=== PATIENT | female | born 1990 ===

== ENCOUNTER 2024-06-01 13:59 | Emergency (ER) | payer OTHER, SELFPAY ==
--- NOTE | ~2024-06-01 | XR_ITS ---
EXAMINATION: XR CHEST CLINICAL INFORMATION: Cough, hx of liver transplant COMPARISON: None available. TECHNIQUE: 2 views of the chest were obtained. FINDINGS: No significant abnormality is noted involving the heart, lungs, mediastinum, bony thorax or soft tissues. XR/XR chest 2V IMPRESSION: Unremarkable examination.
--- NOTE | ~2024-06-01 | CT_ITS ---
EXAMINATION: CT ABDOMEN AND PELVIS WITH CONTRAST CLINICAL INFORMATION: Large ventral hernia, status post liver transplantation. COMPARISON: CT abdomen and pelvis from 08/03/2022 TECHNIQUE: Multidetector volumetric images were obtained from the superior aspect of the liver through the pubic symphysis following administration 85 mL of Omnipaque 350 intravenous contrast. Sagittal and coronal reformatted images were obtained on the technologist's workstation. Oral contrast: No This CT examination was performed using dose optimization techniques as appropriate, variously including the following: *Automated exposure control *Adjustment of mA and/or kV according to patient size (this includes techniques or standardized protocols for targeted exams where dose is matched to indication/reason for exam; i.e. extremities or head) *Use of iterative reconstruction technique DLP: 944 mGy-cm FINDINGS: LUNG BASES: No pulmonary consolidation or pleural effusion. HEPATOBILIARY: The transplant liver has normal parenchymal attenuation. Gallbladder is surgically absent. No dilated bile ducts. PANCREAS: No edema, pancreatic ductal dilatation or mass. SPLEEN: Normal. ADRENAL GLANDS: Normal. KIDNEYS AND URETERS: Kidneys have normal size and cortical thickness. No perinephric edema, urolithiasis or hydroureteronephrosis. BLADDER: Normal. BOWEL AND PERITONEUM: Stomach and small bowel are unremarkable. No dilated loops. The appendix is normal. No overt colonic wall thickening or mesenteric fat stranding. No free fluid or pneumoperitoneum. ABDOMINAL WALL: The ventral abdominal wall hernias are new since 08/01/2022. There is a bilobed appearance of a fat-containing periumbilical hernia. This fat-containing hernia has a neck that measures approximately 4.5 cm wide and hernia sac is 8 cm transverse, 2.6 cm AP and 5.9 cm craniocaudal. Also, there is a right of midline abdominal wall hernia traveling through the right rectus abdominis muscle that is larger than the fat-containing periumbilical hernia. This more right-sided hernia has a broad neck of at least 10 cm wide and the large hernia sac contains fat, unobstructed small bowel as well as part of the anterior wall of a segment of transverse colon. The hernia sac is approximately 17.6 cm transverse, 7 cm AP and 13 cm craniocaudal. VASCULATURE: Abdominal aorta is normal in caliber and its branches are widely patent. Inferior vena cava is normal. No portal or hepatic venous thrombosis. LYMPH NODES: No pathologic sized lymph nodes in the abdomen or pelvis. No inguinal lymphadenopathy. PELVIC VISCERA: No uterine mass. 3 x 4 x 2.9 cm cyst of the left ovary has a simple appearance. It was 2.8 x 4.7 x 4 cm on 08/03/2022. No imaging follow-up required/recommended for this simple cyst that has decreased in size. No pelvic free fluid. MUSCULOSKELETAL: No acute or suspicious osseous abnormality. Bones appear to be diffusely osteopenic and there is chronic height loss of multiple vertebra. No acute fractures. CT/CT abdomen pelvis w IV con IMPRESSION: * Status post liver transplantation. * Compared to 08/03/2022, interval development of two abutting ventral abdominal wall hernias, as noted above. * Simple cyst of the left ovary has decreased in size compared to 08/03/2022. * Bones appear to be diffusely osteopenic and there is chronic height loss of multiple vertebra. No acute fractures.
[2024-06-01 14:02] VITALS: BP 115/76; PULSE 95; RESP 18; TEMP 36.6; O2SAT 99
--- NOTE | 2024-06-01 14:02 | ED.GENADULT ---
HPI - General Adult General Chief complaint: General Medical Stated complaint: multiple complaints Time Seen by Provider: 06/01/24 15:50 History of Present Illness ED Provider: Wali BAILEY narrative: The patient is a 34-year-old female who has a past medical history of liver failure with a liver transplant at [facility] in [place] a few years ago. The patient has a large ventral hernia related to the liver surgery. She says that a few months ago she was supposed to have surgery to repair the hernia with a mesh but she had some other medical issues at the time and so the surgery was not done. The patient says that over the last week she has had worsening abdominal discomfort together with nausea and vomiting. She has a lot of total body pains. She has not had any fevers. She says that she last had her hernia visualized by an imaging study at [facility] 1 week ago. The patient lives in [place]. We have no recent records on this patient. Related Data Allergies Allergy/AdvReac Type Severity Reaction Status Date / Time aspirin Allergy Anaphylaxis Verified 06/01/24 14:10 ibuprofen [From Motrin] Allergy Anaphylaxis Verified 06/01/24 14:10 Penicillins Allergy Anaphylaxis Verified 06/01/24 14:10 Sulfa (Sulfonamide Allergy Anaphylaxis Verified 06/01/24 14:10 Antibiotics) morphine AdvReac Vomiting Verified 06/01/24 14:10 Review of Systems Review of Systems: Yes all other systems are reviewed and are negative [facility] Social History Social History Advance Directives: No Advance Directives Information Provided: No Do you have a plan to hurt others: No Plan Physical Exam ED Vital Signs: Vital Signs - 24 hr 06/01/24 14:02 06/01/24 18:12 Temperature 97.8 F 97.2 F Pulse Rate 95 83 Respiratory Rate 18 18 Blood Pressure 115/76 120/77 Pulse Oximetry 99 96 Oxygen Delivery Method Room Air Room Air BMI result Body Mass Index 30.0 Const Other: The patient is a chronically ill-appearing 34-year-old. She is awake and alert. She does not appear in obvious acute distress. HENMT Other: Face is symmetrical. Mucous membranes moist. Eyes Other: Pupils are round equal, conjunctivae are clear Neck Other: No obvious JVD Resp Effort & Inspection: normal respiratory effort Auscultation: clear to auscultation bilaterally Cardio Rate: regular rate Rhythm: regular rhythm Heart sounds: S1 normal heart sound present and S2 normal heart sound present GI Other: There is a large protuberant to the right side of the upper abdomen consistent with a large ventral hernia. For the most part the hernia feels soft. Skin Other: Skin is dry and unremarkable Neuro Other: The patient is awake and alert with a normal level of consciousness and normal mental status. Cranial nerves are grossly intact. She moves her extremities symmetrically. Extrem Other: No peripheral edema. No calf swelling or tenderness. Feet are well-perfused. Course Course Course Narrative: This is a rapid medical exam. Deferred additional HPI, ROS, PE to primary provider. 34 yo female with history of DM, anxiety, depression, MOIRA, liver transplant in 2021 here with complaints of abdominal pain, vomiting x 5-7 days. Has known hernia which is causing pain recently. Has providers at [facility] (transplant center) and all her other providers at [facility]. Also c/o acute on chronic back pain secondary to known compression fractures despite taking her home gabapentin, oxycodone. 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 Administered Discontinued Medications Generic Name Dose Route Start Last Admin Trade Name Freq PRN Reason Stop Dose Admin Hydromorphone HCl 1 mg 06/01/24 16:02 06/01/24 16:43 Hydromorphone Hcl 1 Mg/Ml Syringe IVPUSH 06/01/24 16:03 1 mg ONCE ONE Administration Protocol Hydromorphone HCl 1 mg 06/01/24 17:56 06/01/24 18:04 Hydromorphone Hcl 1 Mg/Ml Syringe IVPUSH 06/01/24 17:57 1 mg ONCE ONE Administration Protocol Sodium Chloride 1,000 mls @ 999 mls/hr 06/01/24 16:15 06/01/24 18:05 Ns IV 06/01/24 17:15 Infused .Q1H1M MARY Infusion Iohexol 100 ml 06/01/24 16:28 06/01/24 16:29 Iohexol 350 Mg/Ml 100 Ml Infus..Btl IV 06/01/24 16:29 85 ml ONCE ONE Administration Prochlorperazine Edisylate 10 mg 06/01/24 16:02 06/01/24 16:42 Prochlorperazine Edisylate 10 Mg/2 Ml Vial IVPUSH 06/01/24 16:03 10 mg ONCE ONE Administration Medical Decision Making Medical Decision Making [facility] Narrative: The patient is a 34-year-old woman with multiple chronic problems including a chronic abdominal wall hernia related to surgery for a liver transplant she received a few years ago at [facility]. She says that because of insurance problems she can no longer follow up with the [facility] surgeon and she has been referred to a surgeon at [facility]. She presents complaining of worsening pain around the hernia today. A review of records obtained from [facility] show that she was seen at [facility] on May 27 (5 days ago) for a similar complaint. She had also been seen on May 22 (10 days ago) for the same complaint. She had had a CT of the abdomen on May 22 that showed no acute findings. At the visit on May 27 she did not have a repeat CT scan. 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 She last filled a prescription for oxycodone (10 mg tablets) on May 05. This was for a 28 day supply. She had also been given a prescription for 18 tablets of hydromorphone 2 mg each on May 21. Today we did labs and a CT scan. These are unremarkable. I do not feel his any definite acute process. The patient was treated symptomatically in the emergency department but she was told that she needs to follow up with the regular providers regarding chronic pain management. Lab Data 06/01/24 14:26 06/01/24 14:26 Labs: Lab Results 06/01/24 06/01/24 06/01/24 Range/Units 14:20 14:21 14:22 WBC (4.8-10.8) X10*3/uL RBC (4.20-5.50) X10*6/uL Hgb (12.0-16.0) g/dl Hct (37.0-47.0) % MCV (80.0-98.0) fL MCH (27.0-33.0) pg MCHC (31.0-35.0) g/dl RDW (11.0-16.0) % Plt Count (160-400) X10*3/uL MPV (9.4-12.3) fL Immature Gran % (Auto) (0.0-0.4) % Neut % (Auto) (45-73) % Lymph % (Auto) (20-40) % [place] % (Auto) (2-11) % Eos % (Auto) (0-4) % Baso % (Auto) (0-2) % Lymph # (Auto) (1.2-4.9) X10*3/uL [place] # (Auto) (0.1-1.2) X10*3/uL Eos # (Auto) (0.0-0.4) X10*3/uL Baso # (Auto) (0.0-0.2) X10*3/uL Abs Immat Gran (auto) (0.00-0.03) X10*3/uL Absolute Neuts (auto) (2.0-8.3) x10*3/uL Absolute Nucleated RBC (0.0-0.012) X10*3/uL Nucleated RBC % (auto) (0.0-0.2) /100WBC Sodium (135-145) mmol/L Potassium (3.3-5.1) mmol/L Chloride (96-108) mmol/L Carbon Dioxide (22-29) mmol/L Anion Gap (12-20) BUN (9-16) mg/dL Creatinine (0.5-1.4) mg/dL Estim Creat Clear Calc Estimated GFR Random Glucose (60-115) mg/dL Calcium (8.4-10.2) mg/dL Magnesium (1.6-2.6) mg/dL Total Bilirubin (0.0-1.0) mg/dL Direct Bilirubin (0.0-0.5) mg/dL AST (5-31) U/L ALT (0-31) U/L Alkaline Phosphatase (39-117) U/L Total Protein (6.5-8.0) g/dL Albumin (3.5-5.0) g/dL Lipase (8-78) U/L Urine Color Yellow Urine Appearance Clear Urine pH 6.0 (5.0-9.0) Ur Specific [place] 1.020 (1.005-1.025) Urine Protein Trace (Neg-Trace) mg/dL Urine Glucose (UA) Negative (Negative) mg/dL Urine Ketones Trace (Negative) mg/dL Urine Blood Negative (Negative) Urine Nitrite Negative (Negative) Ur Leukocyte Esterase Negative (Negative) Urine Test NEGATIVE (NEGATIVE) Influenza Type A (PCR) NEGATIVE (Negative) Influenza Type B (PCR) NEGATIVE (Negative) RSV RNA Qual (PCR) NEGATIVE (Negative) SARS-CoV-2 RNA (RT-PCR) NEGATIVE (Negative) 06/01/24 Range/Units 14:26 WBC 6.5 (4.8-10.8) X10*3/uL RBC 3.74 L (4.20-5.50) X10*6/uL Hgb 10.4 L (12.0-16.0) g/dl Hct 34.9 L (37.0-47.0) % MCV 93.3 (80.0-98.0) fL MCH 27.8 (27.0-33.0) pg MCHC 29.8 L (31.0-35.0) g/dl RDW 15.4 (11.0-16.0) % Plt Count 289 (160-400) X10*3/uL MPV 10.6 (9.4-12.3) fL Immature Gran % (Auto) 0.3 (0.0-0.4) % Neut % (Auto) 48.5 (45-73) % Lymph % (Auto) 34.8 (20-40) % [place] % (Auto) 8.4 (2-11) % Eos % (Auto) 7.5 H (0-4) % Baso % (Auto) 0.5 (0-2) % Lymph # (Auto) 2.3 (1.2-4.9) X10*3/uL [place] # (Auto) 0.6 (0.1-1.2) X10*3/uL Eos # (Auto) 0.5 H (0.0-0.4) X10*3/uL Baso # (Auto) 0.0 (0.0-0.2) X10*3/uL Abs Immat Gran (auto) 0.02 (0.00-0.03) X10*3/uL Absolute Neuts (auto) 3.2 (2.0-8.3) x10*3/uL Absolute Nucleated RBC 0.000 (0.0-0.012) X10*3/uL Nucleated RBC % (auto) 0.0 (0.0-0.2) /100WBC Sodium 134 L (135-145) mmol/L Potassium 4.1 (3.3-5.1) mmol/L Chloride 102 (96-108) mmol/L Carbon Dioxide 22 (22-29) mmol/L Anion Gap 14 (12-20) BUN 14 (9-16) mg/dL Creatinine 1.27 (0.5-1.4) mg/dL Estim Creat Clear Calc 65.9 Estimated GFR 48 Random Glucose 199 H (60-115) mg/dL Calcium 9.6 (8.4-10.2) mg/dL Magnesium 1.7 (1.6-2.6) mg/dL Total Bilirubin 0.4 (0.0-1.0) mg/dL Direct Bilirubin 0.1 (0.0-0.5) mg/dL AST 26 (5-31) U/L ALT 15 (0-31) U/L Alkaline Phosphatase 57 (39-117) U/L Total Protein 7.4 (6.5-8.0) g/dL Albumin 3.5 (3.5-5.0) g/dL Lipase 64 (8-78) U/L Urine Color Urine Appearance Urine pH (5.0-9.0) Ur Specific [place] (1.005-1.025) Urine Protein (Neg-Trace) mg/dL Urine Glucose (UA) (Negative) mg/dL Urine Ketones (Negative) mg/dL Urine Blood (Negative) Urine Nitrite (Negative) Ur Leukocyte Esterase (Negative) Urine Test (NEGATIVE) Influenza Type A (PCR) (Negative) Influenza Type B (PCR) (Negative) RSV RNA Qual (PCR) (Negative) SARS-CoV-2 RNA (RT-PCR) (Negative) Discharge Plan Discharge Clinical Impression: Abdominal pain, Abdominal wall hernia, Liver transplant status Patient Disposition: Home, Self-Care Additional Instructions: Your testing in the emergency room today is reassuring. Your hernia is stable on the CT scan. Your blood tests are all also reassuring. Please follow up with your regular providers. Referrals: Emil Samaniego MD [Physician] - (abdominal pain) Discharge Date/Time: 06/01/24 18:13 Print Language: Mongolian
[2024-06-01 14:33] LABS: MANUAL DIFF FLAG NO
[2024-06-01 14:35] LABS: Appearance Urine Clear; Color Urine Yellow; Glucose Urine UA Negative (Negative); Leukocyte Esterase Urine Negative (Negative); Nitrite Urine Negative (Negative); Urine Blood Negative (Negative); Urine Ketones Trace mg/dL (Negative); Urine Protein Trace mg/dL (Neg-Trace)
[2024-06-01 14:36] LABS: Basophils Percent Auto 0.5 % (0-2); Eosinophils Absolute Auto 0.5 X10*3/uL (0.0-0.4); Eosinophils Percent Auto 7.5 % (0-4); Hematocrit 34.9 % (37.0-47.0); Hemoglobin 10.4 g/dl (12.0-16.0); Imm Gran Abs Auto 0.02 X10*3/uL (0.00-0.03); Imm Gran Pct Auto 0.3 % (0.0-0.4); Lymphocytes Absolute Auto 2.3 X10*3/uL (1.2-4.9); Lymphocytes Percent Auto 34.8 % (20-40); Mean Corpuscular HGB Conc 29.8 g/dl (31.0-35.0); Mean Corpuscular Hemoglobin 27.8 pg (27.0-33.0); Mean Corpuscular Volume 93.3 fL (80.0-98.0); Mean Platelet Volume 10.6 fL (9.4-12.3); Monocytes Absolute Auto 0.6 X10*3/uL (0.1-1.2); Monocytes Percent Auto 8.4 % (2-11); Neutrophils Absolute Auto 3.2 x10*3/uL (2.0-8.3); Neutrophils Percent Auto 48.5 % (45-73); Platelet Count 289 X10*3/uL (160-400); Red Blood Count 3.74 X10*6/uL (4.20-5.50); Red Cell Distribution Width 15.4 % (11.0-16.0); White Blood Count 6.5 X10*3/uL (4.8-10.8)
[2024-06-01 14:43] LABS: UPreg QC Valid YES; Urine Pregnancy NEGATIVE (NEGATIVE)
[2024-06-01 15:05] LABS: Alanine Aminotransferase 15 U/L (0-31); Albumin Level 3.5 g/dL (3.5-5.0); Alkaline Phosphatase 57 U/L (39-117); Anion Gap 14 (12-20); Aspartate Amino Transferase 26 U/L (5-31); Bilirubin Direct 0.1 mg/dL (0.0-0.5); Bilirubin Total 0.4 mg/dL (0.0-1.0); Blood Urea Nitrogen 14 mg/dL (9-16); Calcium 9.6 mg/dL (8.4-10.2); Carbon Dioxide 22 mmol/L (22-29); Chloride 102 mmol/L (96-108); Creatinine Clr Calc Pharmacy 65.9; Estimated Glomerular Filt Rate 48; Glucose Random 199 mg/dL (60-115); Lipase 64 U/L (8-78); Magnesium 1.7 mg/dL (1.6-2.6); Potassium 4.1 mmol/L (3.3-5.1); Sodium 134 mmol/L (135-145); Total Protein 7.4 g/dL (6.5-8.0)
[2024-06-01 15:25] LABS: Influenza A PCR NEGATIVE (Negative); Influenza B PCR NEGATIVE (Negative); Resp Syncy Virus RNA Qual PCR NEGATIVE (Negative); SARS COV2 PCR INHOUSE NEGATIVE (Negative)
[2024-06-01] MEDS: iohexoL 350 MG/ML 100 ML INFUS..BTL IV (16:29)
[2024-06-01] MEDS: Prochlorperazine Edisylate 10 MG/2 ML VIAL IVPUSH (16:42)
[2024-06-01] MEDS: 0.9 % Sodium Chloride 1,000 ML 999 ML IV (16:42)
[2024-06-01] MEDS: HYDROmorphone HCl 1 MG/ML SYRINGE IVPUSH ×2 (16:43→18:04)
[2024-06-01 18:12] VITALS: BP 120/77; PULSE 83; RESP 18; TEMP 36.2; O2SAT 96
== END 2024-06-01 18:13 | disposition home or self-care (01) ==
PROVIDERS: Nurse Practitioner Family; Emergency Provider Emergency Medicine
DX: K45.8 Other specified abdominal hernia without obstruction or gangrene (principal); R05.9 Cough, unspecified; R10.30 Lower abdominal pain, unspecified; R11.0 Nausea; Z03.818 Encounter for observation for suspected exposure to other biological agents ruled out; Z79.899 Other long term (current) drug therapy
CPT/HCPCS: 0241U; 71046; 74177; 80048; 80076; 81003; 81025; 83690; 83735; 85025; 96360; 96374; 96375; 96376; 99284; J0737; J1170; Q9967